=== PATIENT | female | born 1950 | race Caucasian/White ===

== ENCOUNTER → 2017-04-21 | Outpatient (CLI) | payer MEDICARE, OTHER | END | disposition home or self-care (01) | LOC: CFH 14:47 | PROVIDERS: ATTEND Family Medicine | DX: M16.0 Bilateral primary osteoarthritis of hip (principal) | CPT/HCPCS: 73523 ==

== ENCOUNTER → 2017-05-03 | Outpatient (CLI) | payer MEDICARE, OTHER | END | disposition home or self-care (01) | LOC: MERGE 14:26 → CFH 14:26 | PROVIDERS: ATTEND Family Medicine | DX: Z13.820 Encounter for screening for osteoporosis (principal); M85.9 Disorder of bone density and structure, unspecified | CPT/HCPCS: 77080 ==

== ENCOUNTER 2018-12-05 15:40 | Outpatient (CLI) | payer MEDICARE, OTHER | END 2018-12-05 23:59 | disposition home or self-care (01) | LOC: CFH 15:40 | PROVIDERS: ATTEND Family Medicine | DX: S33.140A Subluxation of L4/L5 lumbar vertebra, initial encounter (principal); M41.86 Other forms of scoliosis, lumbar region; M47.816 Spondylosis without myelopathy or radiculopathy, lumbar region; X58.XXXA Exposure to other specified factors, initial encounter; Y93.89 Activity, other specified; Y92.89 Other specified places as the place of occurrence of the external cause; Y99.8 Other external cause status | CPT/HCPCS: 72100 ==